=== PATIENT | female | born 1950 | race Caucasian/White ===

== ENCOUNTER 2023-04-23 06:08 | Day surgery (SDC) | payer MEDICARE, OTHER, SELFPAY ==
[2023-04-23 06:45] VITALS: BMI 55.7
[2023-04-23 06:51] VITALS: BP 103/46; PULSE 65; RESP 18; TEMP 36.4; O2SAT 96
[2023-04-23] MEDS: LACTATED RINGERS 1000 ML 1,000 ML 100 ML IV (07:41)
[2023-04-23] MEDS: CEFAZOLIN 2 GM INJ IVP (07:50)
--- NOTE | 2023-04-23 08:26 | W.ANESCHARGE ---
Anesthesia Charges Start Date/Time Anesthesia Start Date: 04/23/23 Anesthesia Start Time: 07:37 Stop Date/Time Anesthesia Stop Date: 04/23/23 Anesthesia Stop Time: 09:04 Summary Extremes of Age - Over 70 or under 1: MDA
[2023-04-23] MEDS: BUPIVACAINE 0.25% 30 ML INJECTION (08:36)
[2023-04-23 09:00] VITALS: BP 108/42; PULSE 68; RESP 20; TEMP 36.2; O2SAT 94
--- NOTE | 2023-04-23 09:03 | PM.GSPRC ---
Operative Note Pre-op diagnosis: Mass of the left upper thigh Post-op diagnosis: Same Type of Procedure: Wide local excision of mass to the left upper thigh Indications: Patient is a 72-year-old female who was seen in clinic for large, dilated varicosities of the left upper thigh. One of these varicosities had ulcerated and was perpetually bleeding. Due to these symptoms, as well as concern for infection risks and benefits of excision in the operating room were discussed at length the patient. Risks and benefits of operative intervention were discussed at length with the patient. Risks included but was not limited to: Bleeding, infection, risk of damage to surrounding structures, possible need for additional procedures, wound dehiscence and postoperative complications such as pneumonia, pulmonary emboli or MT. All questions and concerns were addressed with the patient agreeing to proceed. Patient did hold her warfarin prior to the procedure with INR this morning of 1.3. Procedure Description: After discussing the risks and benefits of the procedure, the patient signed informed consent.? The operative site was marked and the patient was brought to the operating room and placed on the operating table in supine position.? Care was taken to pad the patient's pressure points.?? The patient was then given sedation by anesthesia.?? The operative site was then prepped and draped in the usual sterile fashion.? A time-out was then performed. Patient was placed lateral decubitus with left side up. Evidence of surrounding ecchymoses of the left upper thigh/buttocks. A large cluster of dilated veins was present on the left upper thigh with 2 areas of ulceration, but no active bleeding. The mass measured approximately 5 by 3 cm in size. An elliptical transverse incision was made around the varicosities. Cautery was utilized to dissect into the subcutaneous tissue. As large dilated veins were encountered these were ligated with Vicryl ties and clips. The mass was removed in its entirety and passed off the back table to be sent to pathology. Hemostasis was assured with cautery. The incision was then closed in layers with interrupted 3 0 Vicryl and running 4-0 Monocryl suture. The incision length was 8 cm in size. Dermabond and a pressure dressing was applied over top. ? The patient was then woken and transported to the recovery area in stable condition. ? The patient tolerated the procedure well. Findings: Ulcerated, dilated cluster veins to the left upper thigh. Anesthesia: MAC and local Surgeon: Olivia Gary MD Estimated blood loss (mL): 30 Additional Specimen Information: Left upper thigh mass Condition: stable Disposition: same day Date of procedure: 04/23/23
--- NOTE | 2023-04-23 09:05 | P.ANES_ITS ---
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
[2023-04-23 09:15] VITALS: BP 111/32; PULSE 62; RESP 20; O2SAT 95
[2023-04-23 09:30] VITALS: BP 113/47; PULSE 64; RESP 20; O2SAT 97
[2023-04-23 09:45] VITALS: BP 102/58; PULSE 64; RESP 20; O2SAT 97
[2023-04-23 10:10] VITALS: BP 116/50; PULSE 67; RESP 20; O2SAT 96
--- NOTE | 2023-04-23 10:22 | SUR.PHASEII ---
Pt up with assistance x2 nurses and walker once we got pt up she stood and transfered to recliner dressing d and i denies pain at this time
--- NOTE | 2023-04-23 10:26 | SUR.PHASEII ---
Went over discharge instructions with pt and both appear to understand questions answered discharge papers and instructions to go home with pt
== END 2023-04-23 11:07 | disposition home or self-care (01) ==
PROVIDERS: PCP Family Medicine; Visit Provider Surgery
PROC: (CPT 37785; principal; 2023-04-23 07:30)
DX: I83.021 Varicose veins of left lower extremity with ulcer of thigh (principal); I83.892 Varicose veins of left lower extremity with other complications; R22.42 Localized swelling, mass and lump, left lower limb
CPT/HCPCS: 37785; 00400; 82962; 85610; 88305; 99100; J0665; J0690; J1100; J2250; J2371; J2405; J2704; J3010; J3490; J7120

== ENCOUNTER 2023-08-20 14:35 | Emergency (ER) | payer MEDICARE, OTHER, SELFPAY ==
[2023-08-20 15:51] VITALS: BP 139/61; PULSE 68; RESP 18; TEMP 35.8; O2SAT 95; BMI 64.6
--- OUTSIDE RECORDS SUMMARY | 2023-08-20 19:54 | XMS_ITS | Clinical Summary ---
Author Name Unknown Organization [facility] Address [place], [place] [address] Care Team Providers Care Chief Executive Or Managing Director Name Role Phone Paco Hardy Unavailable Jenny Benavides DO Primary Care Provider [phone] Allergies No known active allergies Medications Medication Sig Dispensed Refills Start Date End Date Status acetaminophen (TYLENOL EXTRA STRGTH) 500 mg tablet Take 1-2 tablets by mouth every 6 hours if needed. Max acetaminophen dose: 4000mg in 24 hrs. 0 08/14/19 18 Active medication order composerIndication s:Spinal stenosis of lumbar region, unspecified whether neurogenic claudication present,Type 2 diabetes mellitus with stage 3 chronic kidney disease, with long-term current use of insulin (HC) One walker for ambulation and stability 1 unit 0 02/14/20 18 Active lancetsIndications :Type 2 diabetes mellitus without complication, with long-term current use of insulin (HC) Dispense item covered by pt ins. E11.9 IDDM type II - Test 2 times/day. 200 Each 3 05/01/20 22 Active pen needle, diabetic (Sure Comfort Pen Needle) 31 gauge x 5/16Indications:T ype 2 diabetes mellitus without complication, with long-term current use of insulin (HC) USE FOR INSULIN AT HOME TWICE A DAY 200 Each 3 11/06/19 23 Active blood-glucose meter (FreeStyle Lite Meter)Indications: Type 2 diabetes mellitus without complication, with long-term current use of insulin (HC) Dispense meter, test strips, lancets covered by pt ins. E11.9 IDDM type II - Test 2 times/day. USE DIRECTED. 1 Kit 0 11/10/19 Active FreeStyle Lancets 28 gauge miscIndications:Ty pe 2 diabetes mellitus without complication, with long-term current use of insulin (HC) USE TO TEST BLOOD GLUCOSE LEVELS TWICE DAILY 200 Each 3 11/10/19 Active blood sugar diagnostic (Blood Glucose Test) stripIndications:T ype 2 diabetes mellitus without complication, with long-term current use of insulin (HC) Test 2 times per day. Dx E11.22 200 Each 11/11/19 Active Levemir FlexTouch U100 Insulin 100 unit/mL (3 mL) penIndications:Radha betes mellitus without complication (HC) INJECT 100 UNITS UNDER THE SKIN BEFORE BEDTIME 90 mL 3 05/06/20 Active metoprolol succinate (TOPROL XL) 50 mg sustained-release tabletIndications: Diabetes mellitus without complication (HC),Chronic atrial fibrillation (HC) Take 1 Tablet (50 mg) by mouth once daily. 90 Tablet 3 05/08/20 Active insulin aspart, U-100, (NovoLOG FlexPen U-100 Insulin) 100 unit/mL (3 mL) penIndications:Typ e 2 diabetes mellitus without complication, with long-term current use of insulin (HC) INJECT 20 UNITS UNDER THE SKIN BEFORE DINNER 30 mL 0 05/17/20 23 Active simvastatin (ZOCOR) 20 mg tabletIndications: Diabetes mellitus without complication (HC),Mixed hyperlipidemia TAKE 1 TABLET AT BEDTIME 90 Tablet 0 05/24/20 23 Active lisinopriL (PRINIVIL; ZESTRIL) 10 mg tabletIndications: Diabetes mellitus without complication (HC),Hypertension, unspecified type TAKE 1 TABLET DAILY 90 Tablet 3 05/28/20 23 Active metFORMIN (GLUCOPHAGE) 1,000 mg tabletIndications: Diabetes mellitus without complication (HC) TAKE 1 TABLET TWICE A DAY WITH MEALS 180 Tablet 0 07/03/20 23 Active propafenone (RYTHMOL) 150 mg tabletIndications: Chronic atrial fibrillation (HC) TAKE 1 TABLET EVERY 12 HOURS 180 Tablet 0 07/16/19 24 Active HYDROcodone-acetam inophen (7.5-325 mg/tablet)Indicati ons:Spinal stenosis of lumbar region with neurogenic claudication Take 1 Tablet by mouth 3 times daily if needed for Pain. 90 Tablet 0 07/26/19 24 Active warfarin (COUMADIN) 5 mg tabletIndications: Paroxysmal atrial fibrillation (HC),Anticoagulati on monitoring, INR range 2-3 Take by mouth 5 mg (5 mg x 1) every Roxy; 2.5 mg (5 mg x 0.5) all other days in the evening OR as directed 60 Tablet 0 08/02/19 24 Active HYDROcodone-acetam inophen (7.5-325 mg/tablet)Indicati ons:Spinal stenosis of lumbar region with neurogenic claudication Take 1 Tablet by mouth 3 times daily if needed for Pain (chrpnic pain). 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 Fazal Ramos, Secondary Sarah Bello NP Ok to fill at same amount/dose/frequency in my absence. 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 01/26/15 Umbilical hernia without obstruction and without gangrene 05/19/2015 Overview: Contains loop transverse colon Lumbar spinal stenosis 11/01/2014 Diarrhea 05/14/2014 Overview: EGD 04/2014 normal Colonoscopy 04/2014 incomplete, recommend CT colonograpy Paroxysmal atrial fibrillation 07/31/2013 Anticoagulation monitoring, INR range 2-3 2013 Acute myocardial infarction of other specified sites, episode of care unspecified 09/06/2011 Mixed hyperlipidemia 01/23/2011 Unspecified sleep apnea 10/08/2008 HTN (hypertension) 10/08/2008 Overview: Updated by system to replace inactive record Morbid obesity 11/20/2007 Diabetes mellitus with chronic kidney disease Encounters Date Type Department Care Team Description 08/20/2023 Telephone [facility] [address] [place] [address] Jenny Benavides DO Anticoagulation (Annual orders) 08/20/2023 Anticoagulation (warfarin) [address] [phone] , [facility] Anticoagulation ([facility] Home Monitor) 08/19/2023 Telephone [facility] [address] [place] [address] Jenny Benavides DO Leg Pain/problem 08/02/2023 Refill [facility] [address] [place] [address] Jenny Benavides DO Refill Request (Warfarin) 08/01/2023 Anticoagulation (warfarin) [address] [phone] , [facility] Anticoagulation 07/26/2023 Refill [facility] [address] [place] [address] Fazal Ramos MD Refill Request (Hydrocodone-acetamin ophen) 07/20/2023 Telephone [facility] [address] [place] [address] Jenny Benavides DO Anticoagulation (Dose review) 07/17/2023 Telephone [facility] [address] [place] [address] Jenny Benavides DO Anticoagulation 07/16/2023 Anticoagulation (warfarin) [facility] [address] [place] [address] 1, [facility] Anticoagulation (acelis) 07/16/2023 Refill [facility] [address] [facility] [place] [phone] Trina Mueller MD Refill Request (Propafenone) 07/12/2023 Telephone [facility] [address] [place] [address] Jenny Benavides DO Anticoagulation (Unable to report Acelis result today) 07/05/[address] [phone] 1, [facility] Anticoagulation (Review INR and dosing ) 07/05/2023 Anticoagulation (warfarin) [address] [phone] 1, [facility] Anticoagulation (Acelis) 07/02/2023 Refill [facility] [address] [place] [address] Jenny Benavides DO Refill Request (Metformin) 07/01/2023 Refill [facility] [address] [place] [address] Fazal Ramos MD Refill Request (Hydrocodone-acetamin ophen) 07/01/2023 Anticoagulation (warfarin) [address] [phone] 1, [facility] Anticoagulation (Acelis) 07/01/2023 Anticoagulation (warfarin) [facility] [address] [place] [address] 1, [facility] Anticoagulation (Chart update) 06/25/2023 Anticoagulation (warfarin) [facility] [address] [place] [address] 1, [facility] Anticoagulation (Acelis ) 06/25/2023 Telephone [facility] [address] [place] [address] Jenny Benavides DO Anticoagulation (Unable to report Acelis INR result) 06/03/2023 Anticoagulation (warfarin) [facility] [address] [place] [phone] 1, [facility] Anticoagulation (Acelis) 06/03/[address] [address] Fazal Ramos MD Refill Request (Hydrocodone-acetamin ophen) 05/28/2023 Orders Only [address] [address] Jenny Benavides DO <No scans attached> 05/24/[address] [address] Jenny Benavides DO Refill Request (Simvastatin, Lisinopril) 05/23/2023 Anticoagulation (warfarin) [facility] [address] [place] [address] 1, [facility] Anticoagulation 05/22/2023 4:00 PM PLANT BREEDER Office Visit [address] [address] Olivia Gary MD Post-op (Excision of left upper thigh mass 04/23/23) 05/22/2023 2:50 PM PLANT BREEDER Orders Only [address] [address] Lab, [facility] 05/22/2023 Travel from Last 3 Months Immunizations Name Administration Dates Next Due AMB Influenza, IIV3 (Age >=3 years)(Flu Clinic Only) 05/03/2011,05/07/2008 AMB Influenza, IIV4 PF (=>6 mos Flulaval,Fluzone Fluarix)(Flu Clinic Only) 05/04/2019,05/07/2018 Influenza, High-dose Inactivated 08/07/2016 Influenza, IIV3 (Age >=3 years) 07/13/20 13,03/19/2012,06/15/2010,2008,09/16/2007 Influenza, IIV4 05/19/2015 Influenza, Inactivated AIIV4 (Age 65+ Years) Preserv Free 2022,06/01/2020 Influenza, Inactivated IIV3 (Age 65+ Years) Preserv Free 05/02/2017 Pneumococcal Poly,23-Valent (Pneumovax) 07/13/2013 Pneumococcal conj 13-Valent (Prevnar 13) 06/18/2018 Td (Age >=7 Years) 10/30/2002 Tdap 02/18/2013 Zoster (Zostavax-ZVL, live) 04/22/2012 Family History Medical History Relation Name Comments Psychiatric illness Father depressi on/ ECT Arthritis Mother Heart Disease Mother CHF Osteoporosis Mother Other Mother migraine Stroke Mother Diabetes Sister Cancer-breast No Family History Relation Name Status Comments Father Mother Sister Social History Tobacco Use Types Packs/Day Years Used Date Smoking Tobacco: Former Cigarettes Q uit: 10/19/2008 Smokeless Tobacco: Never Tobacco Cessation:Counseling Given: Not Answered Comments:October 19, 2008 Alcohol Use Standard Drinks/Week Comments No 0 (1 standard drink = 0.6 oz pur e alcohol) PHQ-2 Answer Date Recorded PHQ-2 TOTAL SCORE 2 02/28/2022 Social Connections Answer Date Recorded Frequency of Communication with Friends and Fami ly 4 04/03/2023 Financial Resource Strain Answer Date R ecorded Difficulty of Paying Living Expenses 3 04/03/2023 Difficulty of Paying Living Expenses Not on file 04/03/2023 Food Insecurity Answer Date Recorded Worried About Running Out of Food in the Last Ye ar 1 04/03/2023 Transportation Needs Answer Date Record ed Lack of Transportation (Medical) 2 04/03/2023 Housing Stability Answer Date Recorded Unable to Pay for Housing in the Last Year 1 04/03/2023 Sex and Gender Information Value Date Recorded Sex Assigned at Not on file Gender Identity Not on file Sexual Orientation Not on file Obstetrics History Para Term AB IAB SAB Ectopic Multiple Livin g Live Births 4 3 3 1 1 3 Date Outcome GA Total Labor Labor/2nd/3rd Weight Sex Delivery Anes PTL Sally A1 A5 Name Cl in SAB Term Term Term Last Filed Vital Signs Vital Sign Reading Time Taken Comments Blood Pressure 123/63 05/22/2023 3:46 PM PLANT [employer] Pulse 81 05/22/2023 3:46 PM PLANT BRE[employer] Temperature 36.6 ??C (97.9 ??F) 01/13/2021 9:07 AM CD T Respiratory Rate 22 02/11/2020 3:21 PM CDT Oxygen Saturation 96% 05/22/2023 3:46 PM PLANT [employer]ER Inhaled Oxygen Concentration - - Weight 156.5 kg (345 lb) 2022 1:03 PM CDT Height 160.6 cm (5' 3.23) 2022 1:03 PM CD T Body Mass Index 60.67 2022 1:03 PM CDT Plan of Treatment Health Maintenance Due Date Last Done Comments Zoster (shingles) series for age 50+ (2 of 3) 06/17/2012 04/22/2012 DEXA/DXA scan for age 65+ 2013 05/07/2008 Medicare Wellness for age 65+ 03/06/2015 03/05/2014 Fecal testing non-DNA (FIT,FOBT,iFOBT) for age 45-75 03/09/2015 03/09/2014 Tetanus booster 02/18/2023 02/18/2013, 0801/2013, 10/30/2002 Depression screening for age 12+ 03/02/2023 03/02/2022, 02/28/2022, 01/26/2020, Additional history exists COVID-19 vaccine series ( season) 2023 11/11/2020, 10/21/2020 Influenza for age 65+ 03/15/2023 2022 , 06/01/2020, 05/04/2019, Additional history exists BMI (ht and wt on same day) for age 18+ 2023 2022, 08/14/2017, 12/07/2016, Additional history exists Lipids for age 45-75 04/03/2028 04/03/2023, 02/28/2022, 06/01/2020, Additional history exists Tdap Completed 02/18/2013 Pneumococcal series for age 65+ Completed 8, 07/13/2013 Hepatitis C screening for ag e 18-79 Completed 02/28/2022 Procedures Procedure Name Priority Date/Time Associated Diagnosis Comments HOME MONITOR AC Routine 08/20/2023 12:00 AM PLANT [employer]ER HOME MONITOR AC Routine 08/01/2023 12:00 AM PLANT BREEDER HOME MONITOR AC Routine 07/16/2023 12:00 AM PLANT [employer]EDER HOME MONITOR AC Routine 07/05/2023 12:00 AM PLANT BREEDER HOME MONITOR AC Routine 07/01/2023 12:00 AM PLANT BREEDER HOME MONITOR AC Routine 06/25/2023 12:00 AM PLANT BREEDER HOME MONITOR AC Routine 06/03/2023 12:00 AM PLANT BREEDER CREATININE Routine 05/22/2023 3:35 PM PLANT BREEDER Elevated serum creatinine PROTIME-INR STAT 05/22/2023 3:35 PM PLANT BREEDER Paroxysmal atrial fibrillation (HC) Anticoagulation monitoring, INR range 2-3 from Last 3 Months Results * (ABNORMAL) HOME MONITOR AC (08/20/2023 12:00 AM PLANT BREEDER) Only the most recent of7 resultswithin the time period is included. PATIENT REPORTED HOME INR 1.8(L) 2.00 - 3.00 [facility] 08/20/2023 Jenny Benavides DO OTHER [facility] [address] [place] [address] * (ABNORMAL) CREATININE (05/22/2023 3:35 PM PLANT BREEDER) eGFR 47(L) >90 mL/min/1.7 3m2 05/23/2023 4:30 AM PLANT BREEDER [facility] Comment:As of 2021, eG FR is calculated by the CKD-EPI creatinine equation without race adjustment. ??eGFR can be influenced by muscle mass, exercise, and diet. ??The reported eGFR is an estimation only and is only applicable if the renal function is stable. CREATININE 1.20(H) 0.50 - 0.90 mg/dL 05/23/2023 4:30 AM PLANT BREEDER [facility] Blood BLOOD SPECIMEN / Unknown Butterfly / Unknown 05/22/2023 3:35 PM PLANT BREEDER 05/22/2023 3:42 PM PLANT BREEDER Jenny Benavides DO CHEMISTRY [facility] [address] [address], * (ABNORMAL) PROTIME-INR (05/22/2023 3:35 PM PLANT BREEDER) INR 2.7(H) <1.3 05/22/2023 9:34 PM PLANT BREEDER [facility] PROTIME 29.7(H) 10.3 - 12.3 sec 05/22/2023 9:34 PM PLANT BREEDER [facility] Blood BLOOD SPECIMEN / Unknown Butterfly / Unknown 05/22/2023 3:35 PM PLANT BREEDER 05/22/2023 3:42 PM PLANT BREEDER Narrative [facility] - 05/22/2023 9:34 PM PLANT BREEDER ?Therapeutic Range 2.0-3.0 for most anticoagulated patients 2.5-3.5 or 4.0 for high risk patients The INR is only used for patients on stable oral anticoagulant therapy. It makes no significant contribution to the diagnosis or treatment of patients whose Protime is prolonged for other reasons. INR results are increased when heparin levels exceed 1.0 U/mL, which corresponds to an aPTT >125 seconds if the patient is on UFH. Jenny Benavides DO HEMATOLOGY [facility] [address] [place] [phone], from Last 3 Months Care Teams Chief Executive Or Managing Director Relationship Specialty Start Date End Date Jenny Benavides DO [address] [place] [address] PCP - General Family Practice 06/18/18 Paoc Hardy [address] [place] [id number] [employer] 03/05/14
[2023-08-20 19:56] VITALS: BP 139/59; PULSE 66; RESP 16; O2SAT 98
[2023-08-20 19:57] LABS: Basophils Absolute Auto 0.03 K/uL (0.00-0.30); Basophils Percent Auto 0.4 % (0.0-3.0); Eosinophils Absolute Auto 0.09 K/uL (0.00-0.50); Eosinophils Percent Auto 1.3 % (0.0-7.0); Hematocrit 35.5 % (33.0-51.0); Hemoglobin* 10.6 gm/dL (12.0-16.0); Immature Granulocytes Abs Auto 0.01 K/uL (0.00-0.30); Immature Granulocytes Pct Auto 0.1 %; Lymphocytes Percent Auto 34.2 % (20-44); Mean Corpuscular HGB Conc 30 gm/dL (32-36); Mean Corpuscular Hemoglobin 23 pg (26-34); Mean Corpuscular Volume 78 fL (80-100); Monocytes Percent Auto 9.4 % (0.0-11.0); Neutrophils Absolute Auto 3.66 K/uL (1.7-7.0); Neutrophils Percent Auto 54.6 % (42.0-72.0); Platelet Count* 339 K/uL (140-440); RDW Coefficient of Variation % 19.9 % (11.5-15.5); Red Blood Count 4.53 m/uL (4.00-5.20); White Blood Count* 6.72 K/uL (4.50-11.00)
[2023-08-20 20:01] LABS: Slide Review Reflex No
[2023-08-20 20:02] LABS: Albumin* 4.5 g/dL (3.3-5.0); Chloride* 107 mmol/L (96-114); Sodium* 138 mmol/L (135-149)
[2023-08-20 20:03] LABS: Potassium* 4.7 mmol/L (3.6-5.1)
[2023-08-20 20:05] LABS: Anion Gap 11 mEq/L (7-15); Bilirubin Direct* 0.2 mg/dL (0.0-0.5); Bilirubin Total* 0.8 mg/dL (0.1-1.5); Carbon Dioxide* 20 mmol/L (20-32); Creatinine* 0.9 mg/dL (0.5-1.5); Estimated Glomerular Filt Rate 67 ml/min; Total Protein* 7.7 g/dL (6.0-8.3)
[2023-08-20 20:06] LABS: Alanine Aminotransferase* 10 U/L (4-35); Alkaline Phosphatase* 54 U/L (40-150); Aspartate Amino Transferase* 19 U/L (12-35); Blood Urea Nitrogen* 22 mg/dL (7-30); Glucose* 132 mg/dL (60-115)
[2023-08-20 20:09] LABS: C Reactive Protein* 0.9 mg/dL (0.5-1.0)
[2023-08-20 20:16] LABS: NT Pro B Type NatriureticPept* 95 pg/mL
--- NOTE | 2023-08-20 23:03 | ED_ITS ---
HPI - General Adult General Date Seen: 08/20/23 Chief complaint: Lower Extremity Swelling Stated complaint: Swelling in legs Time Seen by Provider: 08/20/23 18:56 Source: patient, RN notes reviewed and old records reviewed Mode of arrival: wheelchair Limitations: no limitations History of Present Illness HPI narrative: Patient is a 73-year-old woman who is here with her son for evaluation of leg swelling and redness on her left leg. She has a long history of edema in her legs, she says her has taken over the cooking and the eat a lot of processed foods and he has a lot of salt. She does feel that this is accelerated how much swelling she has in her legs. On the left leg in the front kong area she has developed an area of redness, she says it is warm, little bit tender to touch although it is not otherwise painful. She noted some weeping from that area as well. She has not had fevers or systemic complaints. She has not had shortness of breath or chest pain. Due to high volumes, she had to wait about 4 hours prior to being seen in her primary complaint is just that she has been sitting in the wheelchair for a long time and she is very uncomfortable. Related Data Home Medications Medication Instructions Recorded Confirmed insulin aspart U-100 100 unit/mL 20 unit subcut QACDINNER 04/19/23 04/23/23 (3 mL) subcutaneous pen insulin detemir U-100 100 unit/mL 100 unit subcut QHS 04/19/23 04/23/23 (3 mL) subcutaneous pen lisinopril 10 mg tablet 10 mg PO DAILY 04/19/23 04/23/23 metformin 1,000 mg tablet 1,000 mg PO BID 04/19/23 04/23/23 metoprolol succinate 50 mg 50 mg PO DAILY 04/19/23 04/23/23 tablet,extended release 24 hr (Toprol XL) propafenone 150 mg tablet 150 mg PO Q12H 04/19/23 04/23/23 simvastatin 20 mg tablet 20 mg PO QHS 04/19/23 04/23/23 warfarin 2.5 mg tablet 2.5 mg feeding tube 5XW 04/19/23 04/23/23 warfarin 5 mg tablet 5 mg PO 2XW 04/19/23 04/23/23 Allergies Allergy/AdvReac Type Severity Reaction Status Date / Time No Known Drug Allergies Allergy Verified 04/23/23 06:43 Review of Systems Status of ROS: Reports: 10 or more systems reviewed and unremarkable except as noted in History and below [facility] Medical History Depression ?F32.A - Depression, unspecified (ICD-10) IRENE (obstructive sleep apnea) ?G47.33 - Obstructive sleep apnea (adult) (pediatric) (ICD-10) Chronic kidney disease, stage 3 ?N18.30 - Chronic kidney disease, stage 3 unspecified (ICD-10) Controlled substance agreement signed ?Z79.899 - Other fpc (current) drug therapy (ICD-10) Lumbar spinal stenosis ?M48.061 - Spinal stenosis, lumbar region without neurogenic claudication (ICD-10) Paroxysmal atrial fibrillation ?I48.0 - Paroxysmal atrial fibrillation (ICD-10) Acute myocardial infarction ?I21.9 - Acute myocardial infarction, unspecified (ICD-10) Mixed hyperlipidemia ?E78.2 - Mixed hyperlipidemia (ICD-10) Unspecified sleep apnea ?G47.30 - Sleep apnea, unspecified (ICD-10) Hypertension ?I10 - Essential (primary) hypertension (ICD-10) Diabetes mellitus with chronic kidney disease ?E11.22 - Type 2 diabetes mellitus with diabetic chronic kidney disease (ICD- 10) Social History Smoking Status: Never smoker Do you use any of these nicotine containing products: None Second hand tobacco smoke exposure: No How often do you have a drink containing alcohol: never AUDIT-C Alcohol total score: 0 Non-prescribed substance use: denies use Exam Narrative: Exam Narrative: Vital signs as noted above. In general, an alert, nontoxic woman. She is severely overweight. Head: Normocephalic, atraumatic. Eyes: Pupils are equal reactive. Extraocular movements are full. Conjunctivae are normal. ENT: Mucous membranes are moist. Neck: Supple without lymphadenopathy. Heart: Regular rate and rhythm. Delete Lungs: Clear bilaterally. No increased work of breathing, crackles or wheezes. Extremities: She has significant edema in bilateral lower extremities. On the left, she has a little bit of blistering and anterior erythema with some mild warmth, mild tenderness but no fluctuance. Mild venous stasis changes are noted on the right. Pulses are difficult to palpate bilaterally secondary to edema, but capillary refill is brisk. Neurologic: Patient is alert and oriented to person and place. Speech is fluent. Face is symmetric. Moves all extremities equally. Affect: Normal. Skin: Warm and dry. Well perfused. Const: Vital Signs, click to edit/add: Vital Signs - 24 hr 08/20/23 15:51 08/20/23 19:56 Temperature 96.5 F L Pulse Rate [Pulse Oximeter] 68 66 Respiratory Rate 18 16 Blood Pressure [Ri ght Forearm] 139/61 139/59 L Pulse Oximetry 95 98 Oxygen Delivery Me thod Room Air Room Air Documenting provider has reviewed patient's vital signs: yes Course Course ED Course: Overall, discussed with her that I suspect the changes I am seeing on her left kong are more related to venous stasis van cellulitis, but given her age and risk factors I did recommend that we cover her with an antibiotic to be on the safe side. Otherwise, she is nontoxic systemically. She is afebrile. I did check some basic labs and her white blood cell count is normal at 6.7, hemoglobin is 10.6 which is around her baseline. Metabolic panel is unremarkable, blood sugars 132. LFTs are normal, CRP is 0.9. BNP is 95. She feels comfortable going home which I think is appropriate. Discussed reasons to return such as worsening erythema, new symptoms such as fever, significant pain etcetera. Discussed elevation, compression, avoidance of salt. Primary care follow-up for recheck in the next week. Vital Signs Vital signs: Initial Vital Signs Temperature 96.5 F L 08/20/23 15:51 Temperature Source Temporal Artery Scan 08/20/23 15:51 Pulse Rate 68 08/20/23 15:51 Pulse Rhythm Regular 08/20/23 15:51 Respiratory Rate 18 08/20/23 15:51 Blood Pressure 139/61 08/20/23 15:51 Blood Pressure Mean 87 08/20/23 15:51 Blood Pressure Position Sitting 08/20/23 15:51 Pulse Oximetry 95 08/20/23 15:51 Oxygen Delivery Method Room Air 08/20/23 15:51 Vital Signs Temperature 96.5 F L 08/20/23 15:51 Pulse Rate 68 08/20/23 15:51 Respiratory Rate 18 08/20/23 15:51 Blood Pressure 139/61 08/20/23 15:51 Pulse Oximetry 95 08/20/23 15:51 Oxygen Delivery Method Room Air 08/20/23 15:51 Temperature 96.5 F L 08/20/23 15:51 Pulse Rate 66 08/20/23 19:56 Respiratory Rate 16 08/20/23 19:56 Blood Pressure 139/59 L 08/20/23 19:56 Pulse Oximetry 98 08/20/23 19:56 Oxygen Delivery Method Room Air 08/20/23 19:56 Medical Decision Making Lab Data Labs: Lab Results 08/20/23 08/20/23 08/20/23 Range/Units 19:43 19:43 19:43 WBC 6.72 (4.50-11.00) K/uL RBC 4.53 (4.00-5.20) m/uL Hgb 10.6 L (12.0-16.0) gm/dL Hct 35.5 (33.0-51.0) % MCV 78 L (80-100) fL MCH 23 L (26-34) pg MCHC 30 L (32-36) gm/dL RDW Coeff of [place] 19.9 H (11.5-15.5) % Plt Count 339 (140-440) K/uL Neut % (Auto) 54.6 (42.0-72.0) % Lymph % (Auto) 34.2 (20-44) % [place] % (Auto) 9.4 (0.0-11.0) % Eos % (Auto) 1.3 (0.0-7.0) % Baso % (Auto) 0.4 (0.0-3.0) % Neut # (Auto) 3.66 (1.7-7.0) K/uL Lymph # (Auto) 2.30 (0.90-2.90) K/uL [place] # (Auto) 0.60 (0.00-0.90) K/UL Eos # (Auto) 0.09 (0.00-0.50) K/uL Baso # (Auto) 0.03 (0.00-0.30) K/uL Abs Immat Gran (auto) 0.01 (0.00-0.30) K/uL Imm/Tot Granulo (auto) 0.1 % Sodium 138 (135-149) mmol/L Potassium 4.7 (3.6-5.1) mmol/L Chloride 107 (96-114) mmol/L Carbon Dioxide 20 (20-32) mmol/L Anion Gap 11 (7-15) mEq/L BUN 22 (7-30) mg/dL Creatinine 0.9 (0.5-1.5) mg/dL Estimated Creat Clear 45.50 Estimated GFR 67 ml/min Glucose 132 H (60-115) mg/dL Calcium 9.0 (8.4-10.6) mg/dL Total Bilirubin 0.8 Cancelled (0.1-1.5) mg/dL Direct Bilirubin 0.2 Cancelled (0.0-0.5) mg/dL AST 19 (12-35) U/L ALT (4-35) U/L Alkaline Phosphatase (40-150) U/L C-Reactive Protein (0.5-1.0) mg/dL NT-Pro-B Natriuret Pep pg/mL Total Protein (6.0-8.3) g/dL Albumin (3.3-5.0) g/dL 08/20/23 08/20/23 08/20/23 Range/Units 19:43 19:43 19:43 WBC (4.50-11.00) K/uL RBC (4.00-5.20) m/uL Hgb (12.0-16.0) gm/dL Hct (33.0-51.0) % MCV (80-100) fL MCH (26-34) pg MCHC (32-36) gm/dL RDW Coeff of [place] (11.5-15.5) % Plt Count (140-440) K/uL Neut % (Auto) (42.0-72.0) % Lymph % (Auto) (20-44) % [place] % (Auto) (0.0-11.0) % Eos % (Auto) (0.0-7.0) % Baso % (Auto) (0.0-3.0) % Neut # (Auto) (1.7-7.0) K/uL Lymph # (Auto) (0.90-2.90) K/uL [place] # (Auto) (0.00-0.90) K/UL Eos # (Auto) (0.00-0.50) K/uL Baso # (Auto) (0.00-0.30) K/uL Abs Immat Gran (auto) (0.00-0.30) K/uL Imm/Tot Granulo (auto) % Sodium (135-149) mmol/L Potassium (3.6-5.1) mmol/L Chloride (96-114) mmol/L Carbon Dioxide (20-32) mmol/L Anion Gap (7-15) mEq/L BUN (7-30) mg/dL Creatinine (0.5-1.5) mg/dL Estimated Creat Clear Estimated GFR ml/min Glucose (60-115) mg/dL Calcium (8.4-10.6) mg/dL Total Bilirubin (0.1-1.5) mg/dL Direct Bilirubin (0.0-0.5) mg/dL AST Cancelled (12-35) U/L ALT 10 Cancelled (4-35) U/L Alkaline Phosphatase 54 Cancelled (40-150) U/L C-Reactive Protein 0.9 (0.5-1.0) mg/dL NT-Pro-B Natriuret Pep 95 pg/mL Total Protein 7.7 (6.0-8.3) g/dL Albumin (3.3-5.0) g/dL 08/20/23 08/20/23 Range/Units 19:43 19:43 WBC (4.50-11.00) K/uL RBC (4.00-5.20) m/uL Hgb (12.0-16.0) gm/dL Hct (33.0-51.0) % MCV (80-100) fL MCH (26-34) pg MCHC (32-36) gm/dL RDW Coeff of [place] (11.5-15.5) % Plt Count (140-440) K/uL Neut % (Auto) (42.0-72.0) % Lymph % (Auto) (20-44) % [place] % (Auto) (0.0-11.0) % Eos % (Auto) (0.0-7.0) % Baso % (Auto) (0.0-3.0) % Neut # (Auto) (1.7-7.0) K/uL Lymph # (Auto) (0.90-2.90) K/uL [place] # (Auto) (0.00-0.90) K/UL Eos # (Auto) (0.00-0.50) K/uL Baso # (Auto) (0.00-0.30) K/uL Abs Immat Gran (auto) (0.00-0.30) K/uL Imm/Tot Granulo (auto) % Sodium (135-149) mmol/L Potassium (3.6-5.1) mmol/L Chloride (96-114) mmol/L Carbon Dioxide (20-32) mmol/L Anion Gap (7-15) mEq/L BUN (7-30) mg/dL Creatinine (0.5-1.5) mg/dL Estimated Creat Clear Estimated GFR ml/min Glucose (60-115) mg/dL Calcium (8.4-10.6) mg/dL Total Bilirubin (0.1-1.5) mg/dL Direct Bilirubin (0.0-0.5) mg/dL AST (12-35) U/L ALT (4-35) U/L Alkaline Phosphatase (40-150) U/L C-Reactive Protein (0.5-1.0) mg/dL NT-Pro-B Natriuret Pep pg/mL Total Protein Cancelled (6.0-8.3) g/dL Albumin 4.5 Cancelled (3.3-5.0) g/dL Discharge Plan Discharge Clinical Impression: Venous stasis dermatitis Patient Disposition: Home, Self-Care Condition: Stable Instructions: Cellulitis (ED), Venous Insufficiency (DC) Additional Instructions: Antibiotic as prescribed. Be aware this can affect your Coumadin levels. My suspicion is that your skin changes are more likely related to swelling in your legs then to infection. Make sure to moderate your salt intake, elevate your legs as much as possible, consider compression with Avi wraps to help mobilize fluid. Check-in with your primary doctor in the next week. Return for worsening redness, swelling, pain or new symptoms such as fever. Note that your creatinine (kidney function) was normal today. Activity Level: No Restrictions Discharge Diet: Regular Prescriptions: No Action insulin aspart U-100 100 unit/mL (3 mL) insulin pen 20 unit subcut QACDINNER insulin detemir U-100 100 unit/mL (3 mL) insulin pen 100 unit subcut QHS lisinopril 10 mg tablet 10 mg PO DAILY metformin 1,000 mg tablet 1,000 mg PO BID metoprolol succinate [Toprol XL] 50 mg tablet extended release 24 hr 50 mg PO DAILY propafenone 150 mg tablet 150 mg PO Q12H simvastatin 20 mg tablet 20 mg PO QHS warfarin 5 mg tablet 5 mg PO 2XW warfarin 2.5 mg tablet 2.5 mg feeding tube 5XW Follow Up/Referrals: Jenny Benavides DO [Primary Care Provider] - Stand Alone Forms: [facility] Inst[facility]
== END 2023-08-20 20:41 | disposition home or self-care (01) ==
PROVIDERS: Emergency Provider Emergency Medicine; PCP Family Medicine
DX: I83.12 Varicose veins of left lower extremity with inflammation (principal)
CPT/HCPCS: 36415; 80048; 80076; 83880; 85025; 86140; 99283; 99284